=== PATIENT | female | born 1985 | race Caucasian/White ===

== ENCOUNTER 2019-05-21 09:54 | Inpatient (IN) | payer OTHER ==
[2019-05-21] MEDS ORDERED: KETOROLAC 30 MG/ML 1 ML VIAL IVP STA (10:50)
[2019-05-21] MEDS ORDERED: diphenhydrAMINE 50 MG/ML 1 ML VIAL IVP STA (10:50)
[2019-05-21 10:54] LABS: Basophils % (A) 0 %; Eosinophils # (A) 0.1 k/uL (0-0.7); Eosinophils % (A) 1 %; HCT 42.5 % (34.0-46.0); HGB 14.1 gm/dL (11.4-16.0); Lymphocytes # (A) 0.9 k/uL (1.0-4.8); Lymphocytes % (A) 8 %; MCH 29.6 pg (25.0-35.0); MCHC 33.1 g/dL (31.0-37.0); MCV 89.4 fL (80.0-100.0); Mean Platelet Volume 8.1; Monocytes # (A) 0.3 k/uL (0-1.0); Monocytes % (A) 3 %; Neutrophils # (A) 9.6 k/uL (1.3-7.7); Neutrophils % (A) 88 %; Platelet Count 180 k/uL (150-450); RBC 4.76 m/uL (3.80-5.40); RDW 12.8 % (11.5-15.5); WBC 10.9 k/uL (3.8-10.6)
--- NOTE | 2019-05-21 10:55 | CT ---
EXAMINATION TYPE: CT orbits w con DATE OF EXAM: 05/21/2019 COMPARISON: None. HISTORY: Bilateral periorbital swelling, erythema, pain CT DLP: 296 mGycm Automated exposure control for dose reduction was used. CONTRAST: Performed with IV Contrast, patient injected with 100 mL of Isovue 300. FINDINGS: Orbital floors and rebolledo are intact bilaterally. Globes are intact bilaterally. Intraconal fat is pre served. There is perhaps slight asymmetric right-sided proptosis. Rectus muscles are symmetric and th ought within normal limits. Suprasellar cistern is maintained. Pituitary gland is normal in size for patient's age and sex. Optic chiasm is not effaced. Slight prominence of the lacrimal glands bilatera lly. There is ill-defined fluid and fat stranding preorbital region bilaterally significantly more pr ominent on the right with superior extension where there is more ill-defined irregular thick walled f luid collection measuring 2.0 x 0.6 cm-image 27. Reflect developing abscess. No adjacent bony destruc tion. Bilateral frontal sinuses are hypoplastic or nonformed. Visualized paranasal sinuses are clear. Visualized brain parenchyma is within normal limits. Nasal se ptum slightly deviated to right of midline. IMPRESSION: RIGHT GREATER THAN LEFT PRESEPTAL INFECTIOUS PROCESS OR CELLULITIS WITH DEVELOPING RIGHT SMALL SUBCUT ANEOUS ABSCESS THOUGHT PRESENT. NO POST SEPTAL INVOLVEMENT NOTED BILATERALLY.
[2019-05-21 11:00] LABS: ALT 17 U/L (4-34); AST 22 U/L (14-36); African American GFR (CKD) >90 (>60 ml/min/1.73 sqM); Albumin 4.1 g/dL (3.5-5.0); Alkaline Phosphatase 91 U/L (38-126); Anion Gap 9 mmol/L; Blood Urea Nitrogen 9 mg/dL (7-17); Calcium 8.9 mg/dL (8.4-10.2); Carbon Dioxide 24 mmol/L (22-30); Chloride 103 mmol/L (98-107); Glucose 147 mg/dL (74-99); Non-African American GFR(CKD) >90 (>60 ml/min/1.73 sqM); Sodium 136 mmol/L (137-145); Total Bilirubin 0.5 mg/dL (0.2-1.3); Total Protein 7.1 g/dL (6.3-8.2)
--- NOTE | 2019-05-21 11:10 | ED ---
General Adult HPI - General Source: patient, RN notes reviewed Mode of arrival: ambulatory Limitations: no limitations <Lincoln Puri - Last Filed: 05/21/19 11:31> <Allan Borden - Last Filed: 05/21/19 11:37> - General Chief complaint: Allergic Reaction Stated complaint: Facial swelling Time Seen by Provider: 05/21/19 10:02 - History of Present Illness Initial comments: This a 34-year-old female presents emergency Department chief complaint of facial swelling. Patient states it started approximately last Sunday with what she thought was just a pimple. Patient states she went office states that it seemed to come back should popped it. She states that she's had increasing facial pain, swelling. Primarily right greater than left. Patient does admit that she's been on Bactrim taking double the dose since Sunday. Patient states that symptoms continue to worsen. Patient states her right eye swollen almost shut. States her right eye feels very irritated. Patient denies any no fevers or chills no neck pain or neck stiffness. (Lincoln Puri) - Related Data Home Medications Medication Instructions Recorded Confirmed Buprenorphine HCl/Naloxone HCl 1 film SUBLINGUAL TID PRN 05/21/19 05/21/19 [Suboxone 8 mg-2 mg Sl Film] Ibuprofen [Motrin] 800 mg PO Q8H PRN 05/21/19 05/21/19 Sulfamethoxazole/Trimethoprim 1 tab PO BID 05/21/19 05/21/19 [Bactrim DS 800-160 mg] busPIRone HCl [Buspar] 10 mg PO BID 05/21/19 05/21/19 traZODone HCL [Desyrel] 50 mg PO HS 05/21/19 05/21/19 Allergies Allergy/AdvReac Type Severity Reaction Status Date / Time No Known Allergies Allergy Verified 05/21/19 11:13 Review of Systems ROS Other: All systems not noted in ROS Statement are negative. <Lincoln Puri - Last Filed: 05/21/19 11:31> ROS Other: All systems not noted in ROS Statement are negative. <Allan Borden - Last Filed: 05/21/19 11:37> ROS Statement: Those systems with pertinent positive or pertinent negative responses have been documented in the HPI. Past Medical History Past Medical History: No Reported History History of Any Multi-Drug Resistant Organisms: None Reported Past Surgical History: Tubal Ligation Past Psychological History: No Psychological Hx Reported Smoking Status: Current every day smoker Past Alcohol Use History: Occasional Past Drug Use History: Marijuana <Lincoln Puri - Last Filed: 05/21/19 11:31> General Exam Limitations: no limitations General appearance: alert, in no apparent distress Head exam: Present: atraumatic, normocephalic, normal inspection Eye exam: Present: PERRL, EOMI, conjunctival injection (Mild injection on the right), periorbital swelling (Bilateral right greater than left), periorbital tenderness. Absent: normal appearance, scleral icterus Pupils: Present: normal accommodation ENT exam: Present: normal exam, normal oropharynx, mucous membranes moist Neck exam: Present: normal inspection, full ROM. Absent: tenderness, meningismus, lymphadenopathy Respiratory exam: Present: normal lung sounds bilaterally. Absent: respiratory distress, wheezes, rales, rhonchi, stridor Cardiovascular Exam: Present: regular rate, normal rhythm, normal heart sounds. Absent: systolic murmur, diastolic murmur, rubs, gallop, clicks <Lincoln Puri - Last Filed: 05/21/19 11:31> Course <Allan Borden - Last Filed: 05/21/19 11:37> Vital Signs 05/21/19 09:57 Temperature 98.3 F Pulse Rate 119 H Respiratory 21 Rate Blood Pressure 149/88 O2 Sat by Pulse 97 Oximetry - Reevaluation(s) Reevaluation #1: 05/21/19 11:36 Patient reevaluated by myself, Dr. Borden. Patient resting in bed. Patient does have bilateral. No edema and erythema with some mild swelling of the right forehead. Swelling of the right forehead appears as an abscess that is trying to form however has not yet formed to drain. Computed tomography scan reviewed. Case was discussed with Dr. Pandey, who will admit For hospital call. Patient updated. (Allan Borden) Medical Decision Making - Lab Data Result diagrams: 05/21/19 10:28 05/21/19 10:28 <Lincoln Puri - Last Filed: 05/21/19 11:31> - Lab Data Result diagrams: 05/21/19 10:28 05/21/19 10:28 <Allan Borden - Last Filed: 05/21/19 11:37> - Medical Decision Making Patient CT reveals bilateral preseptal cellulitis with early abscess formation patient will be admitted for IV antibiotics and further evaluation. (Lincoln Puri) - Lab Data Lab Results 05/21/19 05/21/19 05/21/19 Range/Units 10:28 10:28 10:28 WBC 10.9 H (3.8-10.6) k/uL RBC 4.76 (3.80-5.40) m/uL Hgb 14.1 (11.4-16.0) gm/dL Hct 42.5 (34.0-46.0) % MCV 89.4 (80.0-100.0) fL MCH 29.6 (25.0-35.0) pg MCHC 33.1 (31.0-37.0) g/dL RDW 12.8 (11.5-15.5) % Plt Count 180 (150-450) k/uL Neutrophils % 88 % Lymphocytes % 8 % Monocytes % 3 % Eosinophils % 1 % Basophils % 0 % Neutrophils # 9.6 H (1.3-7.7) k/uL Lymphocytes # 0.9 L (1.0-4.8) k/uL Monocytes # 0.3 (0-1.0) k/uL Eosinophils # 0.1 (0-0.7) k/uL Basophils # 0.0 (0-0.2) k/uL Sodium 136 L (137-145) mmol/L Potassium 4.0 (3.5-5.1) mmol/L Chloride 103 (98-107) mmol/L Carbon Dioxide 24 (22-30) mmol/L Anion Gap 9 mmol/L BUN 9 (7-17) mg/dL Creatinine 0.72 (0.52-1.04) mg/dL Est GFR (CKD-EPI)AfAm >90 (>60 ml/min/1.73 sqM) Est GFR (CKD-EPI)NonAf >90 (>60 ml/min/1.73 sqM) Glucose 147 H (74-99) mg/dL Plasma Lactic Acid Noel 1.5 (0.7-2.0) mmol/L Calcium 8.9 (8.4-10.2) mg/dL Total Bilirubin 0.5 (0.2-1.3) mg/dL AST 22 (14-36) U/L ALT 17 (4-34) U/L Alkaline Phosphatase 91 (38-126) U/L Total Protein 7.1 (6.3-8.2) g/dL Albumin 4.1 (3.5-5.0) g/dL Disposition <Lincoln Puri - Last Filed: 05/21/19 11:31> <Allan Borden - Last Filed: 05/21/19 11:37> Clinical Impression: Cellulitis of periorbital region of both eyes, Facial abscess, Failure of outpatient treatment Disposition: ADMITTED IP TO THIS HOSP Condition: Fair Referrals: Krystyna Meza MD [Primary Care Provider] - 1-2 days
[2019-05-21] MEDS ORDERED: AMPICILLIN-SULBACTAM 3 GM in SODIUM CHLORIDE 0.9% 100 ML IVPB STA (11:29)
[2019-05-21] MEDS ORDERED: VANCOMYCIN IV PER PHARMACY 1 EACH MISC MISCELLANE PRN (11:30)
[2019-05-21] MEDS ORDERED: NALOXONE 0.4 MG/ML 1 ML VIAL IV PRN (11:32)
[2019-05-21] MEDS ORDERED: KETOROLAC 30 MG/ML 1 ML VIAL IVP PRN (11:32)
[2019-05-21] MEDS ORDERED: ACETAMINOPHEN TAB 325 MG TAB PO PRN (11:32)
[2019-05-21] MEDS ORDERED: ONDANSETRON 4 MG/2 ML VIAL IVP PRN (11:32)
[2019-05-21] MEDS ORDERED: VANCOMYCIN 1,500 MG in SODIUM CHLORIDE 0.9% 250 ML IVPB STA (11:34)
--- NOTE | 2019-05-21 12:48 | P.HPIM ---
History of Present Illness This is a pleasant 54 old female with no significant past medical history. Presents because of eye infection, patient has erythema, swelling and tenderness around both thighs more on the right side. Patient states that this started a small dimple above her right eyebrow which gradually was getting worse and spreading towards her both eyes, she says there was some white discharge coming out of her swelling above her right eye. Also patient complains from pain about 7-8 behind her right eye and a lesser extent in her left eye. Her right eye vision is somewhat blurry as per patient She is slightly tachycardic, afebrile and dressed vitals are stable. She has mild leukocytosis of 10.9 K, sodium 136, rest of BMP and liver enzymes were unremarkable. CT of the head/orbits: Preseptal cellulitis, more on the right side with small cutaneous abscesses might be present, no post subtotal involvement Review of Systems CONSTITUTIONAL: No fever, no malaise, no fatigue. HEENT: No recent visual problems or hearing problems. Denied any sore throat. CARDIOVASCULAR: No orthopnea, PND, no palpitations, no syncope. PULMONARY: No shortness of breath, no cough, no hemoptysis. GASTROINTESTINAL: No diarrhea, no nausea, no vomiting, no abdominal pain. Normoactive bowel sounds. NEUROLOGICAL: No headaches, no weakness, no numbness. HEMATOLOGICAL: Denies any bleeding or petechiae. GENITOURINARY: Denies any burning micturition, frequency, or urgency. MUSCULOSKELETAL/RHEUMATOLOGICAL: Denies any joint pain, swelling, or any muscle pain. ENDOCRINE: Denies any polyuria or polydipsia. Past Medical History Past Medical History: No Reported History History of Any Multi-Drug Resistant Organisms: None Reported Past Surgical History: Tubal Ligation Past Psychological History: No Psychological Hx Reported Smoking Status: Current every day smoker Past Alcohol Use History: Occasional Past Drug Use History: Marijuana Medications and Allergies Home Medications Medication Instructions Recorded Confirmed Type Buprenorphine HCl/Naloxone HCl 1 film SUBLINGUAL TID PRN 05/21/19 05/21/19 History [Suboxone 8 mg-2 mg Sl Film] Ibuprofen [Motrin] 800 mg PO Q8H PRN 05/21/19 05/21/19 History Sulfamethoxazole/Trimethoprim 1 tab PO BID 05/21/19 05/21/19 History [Bactrim DS 800-160 mg] busPIRone HCl [Buspar] 10 mg PO BID 05/21/19 05/21/19 History traZODone HCL [Desyrel] 50 mg PO HS 05/21/19 05/21/19 History Allergies Allergy/AdvReac Type Severity Reaction Status Date / Time No Known Allergies Allergy Verified 05/21/19 11:13 Physical Exam Vitals: Vital Signs Temp Pulse Resp BP Pulse Ox 05/21/19 09:57 98.3 F 119 H 21 149/88 97 Intake and Output 05/20/19 05/21/19 05/21/19 22:59 06:59 14:59 Other: Weight 74.525 kg GENERAL: The patient is alert and oriented x3, not in any acute distress. Well developed, well nourished. HEENT: Pupils are round and equally reacting to light. EOMI. No scleral icterus. No conjunctival pallor. Normocephalic, atraumatic. No pharyngeal erythema. No thyromegaly. -eye and face exam:Patient has redness, warmth, tenderness and swelling around both eyes and eyelids, more on the right side to the degree she cannot open her eyes spontaneously on the right side compared to the left side she can open her eye longterm. Her vision is blurry on the right side. Also she has fluctuance and fullness above her right eyebrow about 2 inches in diameter and 1 inch in width CARDIOVASCULAR: S1 and S2 present. No murmurs, rubs, or gallops. PULMONARY: Chest is clear to auscultation, no wheezing or crackles. ABDOMEN: Soft, nontender, nondistended, normoactive bowel sounds. No palpable organomegaly. MUSCULOSKELETAL: No joint swelling or deformity. EXTREMITIES: No cyanosis, clubbing, or pedal edema. NEUROLOGICAL: Gross neurological examination did not reveal any focal deficits. SKIN: No rashes. No petechiae Results CBC & Chem 7: 05/21/19 10:28 05/21/19 10:28 Labs: Abnormal Lab Results - Last 24 Hours (Table) 05/21/19 05/21/19 Range/Units 10:28 10:28 WBC 10.9 H (3.8-10.6) k/uL Neutrophils # 9.6 H (1.3-7.7) k/uL Lymphocytes # 0.9 L (1.0-4.8) k/uL Sodium 136 L (137-145) mmol/L Glucose 147 H (74-99) mg/dL Assessment and Plan Assessment: Bilateral preseptal cellulitis Possible soft tissue abscess above her right eyebrow Plan: This is a pleasant 54 years old female who presents with preseptal cellulitis. We'll consult infectious disease and further recommendation regarding antibiotic.Also try to consult ENT for possible abscess evacuation and ophthalmology because she has blurred vision . Pain management Labs and medication were reviewed.. Continue same treatment. Continue with symptomatic treatment. Resume home medication. Monitor lytes and vitals. DVT and GI prophylaxis. Further recommendations of the clinical course of the patient DVT prophylaxis: Subcutaneous heparin GI Prophylaxis: Pepcid Prognosis is guarded
[2019-05-21] MEDS: MORPHINE SULFATE 4 MG/ML SYRINGE IV PRN ×2 (14:48→19:48)
[2019-05-21] MEDS: HYDROcodone/APAP 5-325MG 1 EACH TAB PO PRN ×2 (17:24→21:57)
[2019-05-21] MEDS: VANCOMYCIN 1,500 MG in SODIUM CHLORIDE 0.9% 250 ML IVPB SCH (20:03)
[2019-05-21] MEDS: busPIRone HCl 10 MG TAB PO SCH (21:01)
[2019-05-21] MEDS: traZODone HCL 50 MG TAB PO SCH (21:01)
[2019-05-21] MEDS: SODIUM CHLORIDE 0.9% 1,000 ML IV SCH (21:58)
[2019-05-22] MEDS: MORPHINE SULFATE 4 MG/ML SYRINGE IV PRN ×6 (00:16→22:40)
--- NOTE | 2019-05-22 00:16 | P.CONS ---
History of Present Illness - Reason for Consult Consult date: 05/21/19 preseptal cellulitis Requesting physician: Austin Cervantes Sheet - Chief Complaint pain and redness around eyes x days - History of Present Illness Patient is a 34-year-old female presenting to the ER at [facility] with chief complaints of bilateral periorbital pain swelling and redness that the pain has been going on for the last few days patient did menti on that she did have a small pimple above her right eyebrow that she has drained herself twice however subsequent developing significant periorbital swelling redness initially on the right eye and subsequently on the left side as well patient be complaining of throbbing pain to the forehead and periorbital area with intensity almost 7-8 of 10 and no radiation patient did have some chills but denies high-grade fever with the symptom the patient presented to hospital on arrival to the ER the patient has been afebrile patient white from my elevated to 10.[address] of the head and orbit completed which showed right with a left preseptal soft infection possible cellulitis with devel oping very small subcutaneous abscess no post septal involvement noted bilaterally help patient was started on Unasyn and vancomycin admitted to the hospital infectious was consulted for further recommendation about antibiotic therapy Review of Systems CONSTITUTIONAL: Positive for weakness along with low-grade fever. EYES: No complaint. ENT: As per history of present illness rESPIRATORY: No complaint. CARDIOVASCULAR: No complaint. GENITOURINARY: No complaint. GASTROINTESTINAL: No complaint. MUSCULOSKELETAL: No complaint. INTEGUMENTARY: As per history of present illness. PSYCHOLOGIC: No complaint. ENDOCRINE: No complaint. NEUROLOGIC: No complaint. Past Medical History Past Medical History: Hypertension History of Any Multi-Drug Resistant Organisms: None Reported Past Surgical History: Tubal Ligation Past Anesthesia/Blood Transfusion Reactions: No Reported Reaction Past Psychological History: ADD/ADHD Smoking Status: Current every day smoker Past Alcohol Use History: Occasional Past Drug Use History: Marijuana Additional Drug Use History / Comment(s): Daily marijuana use, 2-3 drinks weekly Medications and Allergies Home Medications Medication Instructions Recorded Confirmed Type Buprenorphine HCl/Naloxone HCl 1 film SUBLINGUAL TID PRN 05/21/19 05/21/19 History [Suboxone 8 mg-2 mg Sl Film] Ibuprofen [Motrin] 800 mg PO Q8H PRN 05/21/19 05/21/19 History Sulfamethoxazole/Trimethoprim 1 tab PO BID 05/21/19 05/21/19 History [Bactrim DS 800-160 mg] busPIRone HCl [Buspar] 10 mg PO BID 05/21/19 05/21/19 History traZODone HCL [Desyrel] 50 mg PO HS 05/21/19 05/21/19 History Allergies Allergy/AdvReac Type Severity Reaction Status Date / Time No Known Allergies Allergy Verified 05/21/19 11:13 Physical Exam Vitals: Vital Signs Temp Pulse Pulse Resp BP BP Pulse Ox 05/21/19 15:30 97.3 F L 93 16 147/92 99 05/21/19 13:53 98.1 F 113 H 16 138/99 98 05/21/19 09:57 98.3 F 119 H 21 149/88 97 Intake and Output 05/21/19 05/21/19 05/22/19 14:59 22:59 06:59 Other: # Voids 1 Weight 74.525 kg GENERAL DESCRIPTION: Middle-aged female lying in bed, no distress. No tachypnea or accessory muscle of respiration use. HEENT: Shows Pallor , no scleral icterus. Oral mucous membrane is dry. Bilateral periorbital erythema patient did have a small abscess above her right eyelid with minimal pressure purulent material came out which has been cultured NECK: Trachea central, no thyromegaly. LUNGS: Unlabored breathing. Clear to auscultation anteriorly. No wheeze or crackle. HEART: S1, S2, regular rate and rhythm. ABDOMEN: Soft, no tenderness , guarding or rigidity EXTREMITIES: No edema of feet. SKIN: No rash, no masses palpable. NEUROLOGICAL: The patient is awake, alert, oriented x3, mood and affect normal. Results CBC & Chem 7: 05/21/19 10:28 05/21/19 10:28 Labs: Abnormal Lab Results - Last 24 Hours (Table) 05/21/19 05/21/19 Range/Units 10:28 10:28 WBC 10.9 H (3.8-10.6) k/uL Neutrophils # 9.6 H (1.3-7.7) k/uL Lymphocytes # 0.9 L (1.0-4.8) k/uL Sodium 136 L (137-145) mmol/L Glucose 147 H (74-99) mg/dL Microbiology - Last 24 Hours (Table) 05/21/19 14:36 Wound Culture - Preliminary Face 05/21/19 14:36 Anaerobic Culture - Preliminary Face Assessment and Plan Assessment: -patient with bilateral periorbital cellulitis source is likely small abscess about the right eyebrow that was drained with pressure culture has been obtained and likely a staphylococcal infection with question of possible community associated MRSA (1) Cellulitis of periorbital region of both eyes Current Visit: Yes Status: Acute Code(s): L03.213 - PERIORBITAL CELLULITIS SNOMED Code(s): 002803626 (2) Facial abscess Current Visit: Yes Status: Acute Code(s): L02.01 - CUTANEOUS ABSCESS OF FACE SNOMED Code(s): 121453770 Plan: 1-blood cultures x2 2-local wound cultures will be followed obtained today 3-vancomycin pharmacy to dose her with a target trough of 15 while watching her kidney function and Vanco trough closely. We will follow on clinical condition and cultures to further adjust medication if needed Thank you for this consultation we will follow the patient along with you Time with Patient: Greater than 30
[2019-05-22] MEDS: AMPICILLIN-SULBACTAM 3 GM in SODIUM CHLORIDE 0.9% 100 ML IVPB SCH ×2 (00:17→07:12)
[2019-05-22] MEDS: VANCOMYCIN 1,500 MG in SODIUM CHLORIDE 0.9% 250 ML IVPB SCH ×3 (05:21→20:14)
[2019-05-22] MEDS: busPIRone HCl 10 MG TAB PO SCH ×2 (07:11→20:13)
[2019-05-22] MEDS: HYDROcodone/APAP 5-325MG 1 EACH TAB PO PRN ×3 (07:12→20:13)
--- NOTE | 2019-05-22 07:32 | CONS ---
CONSULTATION REASON FOR CONSULTATION: Right facial abscess. HISTORY: This is a 34-year-old white female who states that a few days ago she had a "pimple over the right eyebrow that she squeezed twice, but then developed variable swelling and redness and tenderness. She presented to the ER for evaluation. She had CT scan of the head, which showed a preseptal cellulitis and abscess. She was seen by Infectious Disease, started on Unasyn and vancomycin and did have some mild purulence squeezed from the area that was cultured but this is pending. In fact, she has not had difficulties in this area previously; however, did have a cellulitis of the left side of the face last year treated with antibiotics and resolved. She has had no fever or chills at home. No visual changes other than swelling around the right eye and therefore cannot see out of this eye very well. She has no eye pain. PAST MEDICAL HISTORY: Hypertension. PAST SURGICAL HISTORY: Tubal ligation. ALLERGIES: No known drug allergies. SOCIAL HISTORY: Does drink alcohol. Occasionally uses marijuana. Smokes daily. MEDICATIONS: At home, Suboxone, Motrin, Bactrim, BuSpar, Desyrel. REVIEW OF SYSTEMS: CONSTITUTIONAL: Pain above the right eye. She denies fever. EYES: As above. ENT: As per present illness. RESPIRATORY: No complaint. CARDIOVASCULAR: No complaint. : No complaint. GI: No complaints. MUSCULOSKELETAL No complaints. INTEGUMENT: As above in the history of present illness. PSYCHOLOGIC: History of ADD, but no present issues with this. ENDOCRINE: No complaint. NEUROLOGIC: No complaint. PHYSICAL EXAM: This is a well-developed adult white female in no acute distress. Vital signs shows she is afebrile. Stable vital signs overall. Otherwise, with mild hypertension intermittently. HEENT: Head normocephalic. Facial exam shows right supraorbital soft tissue swelling and fluctuance. There is a very small pinpoint crusted area which when unroofed has a little bit of purulence. This is minute. There is more fluctuance deep to this. There is right periorbital swelling and edema, although she can open her eye. There is minimal periorbital particularly upper eyelid edema on the left also. She has piercings at the right lateral brow as well as left cheek. The swelling above the eye on the right is tender. Nose shows no drainage or obstruction. Mouth and throat shows a tongue piercing, but no abnormal masses or lesions. Otherwise, no erythema. Neck is supple without adenopathy or tenderness. CT reviewed also as well as labs. ASSESSMENT: Right forehead/brow abscess, possible MRSA. PLAN: Recommend incision and drainage of this abscess. I reviewed the indications, benefits versus risks of the procedure with the patient with the risks including, but not inclusive of the risks of local anesthesia, bleeding, infection, scarring, cosmetic deformity, recurrence, need for further procedures in the future depending on healing and response to medications. The patient understands risks and agrees to proceed. This was performed today at bedside. She tolerated this well. New culture was obtained. Local wound care instructions reviewed. She will continue on present medications with the guidance from Infectious Disease consultation based on culture. She will follow up as needed as this will heal by secondary intention. If she has any questions or concerns, she will call my office regarding this during the healing. For questions or concerns, please contact me. PROCEDURE NOTE: PREOPERATIVE DIAGNOSIS: Right forehead/brow abscess. POSTOPERATIVE DIAGNOSIS: Right forehead/brow abscess. PROCEDURE: Incision and drainage right brow abscess. ANESTHESIA: Local. ESTIMATED BLOOD LOSS: Minimal. Less than 2 mL. COMPLICATIONS: None. INDICATIONS: See consult note. FINDINGS: Abscess with return of approximately 3 mL of thick purulent drainage which was cultured. PROCEDURE DESCRIPTION: Patient was in her hospital bed in a supine position. Informed consent was obtained. The patient is prepped and draped in usual aseptic fashion; 1% lidocaine with 1:1 epinephrine was infused subcutaneously just above the right eyebrow utilizing 2 mL. This was left for 7 minutes for the vasoconstrictive effect. A 1 cm incision was placed just above the right eyebrow and was carried sharply through skin and subcutaneous tissue to the abscess itself. Abscess cavity was then opened bluntly with hemostat and Culture was obtained with the curette. Once no further purulence was draining, a 2 x 2 sterile dressing was placed. The patient tolerated the procedure well with no complications. Good hemostasis noted. MMODL / IJN: [id number] /
--- NOTE | 2019-05-22 08:00 | P.PN ---
Subjective This is a pleasant 54 old female with no significant past medical history. Presents because of eye infection, patient has erythema, swelling and tenderness around both thighs more on the right side. Patient states that this started a small dimple above her right eyebrow which gradually was getting worse and spreading towards her both eyes, she says there was some white discharge coming out of her swelling above her right eye. Also patient complains from pain about 7-8 behind her right eye and a lesser extent in her left eye. Her right eye vision is somewhat blurry as per patient She is slightly tachycardic, afebrile and dressed vitals are stable. She has mild leukocytosis of 10.9 K, sodium 136, rest of BMP and liver enzymes were un remarkable. CT of the head/orbits: Preseptal cellulitis, more on the right side with small cutaneous abscesses might be present, no post subtotal involvement 05/22/2019 Patient feels better, redness, swelling and tenderness in both eyes and eyelids are improving. Her blurriness in her right side is improved today and still didn't blurry by patient and on exam. Patient has been seen by ENT specialist today and she is a status post I and D of her soft tissue abscess about the right eye. Cultures already been ordered and results are pending. Patient has been evaluated by ID team and she was started on Unasyn and IV vancomycin, she is also normal saline at 50 mL/h. Continue with pain management. Extraction Machine Operator to evaluate the patient Updated the patient and all her questions were answered Review of systems CONSTITUTIONAL: No fever, no malaise, no fatigue. HEENT: No recent visual problems or hearing problems. Denied any sore throat. CARDIOVASCULAR: No orthopnea, PND, no palpitations, no syncope. PULMONARY: No shortness of breath, no cough, no hemoptysis. GASTROINTESTINAL: No diarrhea, no nausea, no vomiting, no abdominal pain. Normoactive bowel sounds. NEUROLOGICAL: No headaches, no weakness, no numbness. HEMATOLOGICAL: Denies any bleeding or petechiae. GENITOURINARY: Denies any burning micturition, frequency, or urgency. MUSCULOSKELETAL/RHEUMATOLOGICAL: Denies any joint pain, swelling, or any muscle pain. ENDOCRINE: Denies any polyuria or polydipsia. Active Medications Generic Name Dose Route Start Last Admin Trade Name Freq PRN Reason Stop Dose Admin Acetaminophen 650 mg 05/21/19 11:32 Tylenol Tab PO Q6HR PRN Mild Pain or Fever > 100.5 Hydrocodone Bitart/Acetaminophen 1 each 05/21/19 11:32 05/22/19 07:12 Winston 5-325 PO 1 each Q4HR PRN Administration Moderate Pain Buspirone HCl 10 mg 05/21/19 21:00 05/22/19 07:11 Buspar PO 10 mg BID JOEY Administration Ampicillin Sodium/Sulbactam 100 mls @ 200 mls/hr 05/22/19 00:00 05/22/19 07:1 2 Sodium 3 gm/ Sodium Chloride IVPB 200 mls/hr Q8HR JOEY Administration Vancomycin HCl 1,500 mg/ 250 mls @ 125 mls/hr 05/21/19 20:00 05/22/19 05:21 Sodium Chloride IVPB 125 mls/hr Q8H JOEY Administration Sodium Chloride 1,000 mls @ 50 mls/hr 05/21/19 21:30 05/21/19 21:58 Saline 0.9% IV 50 mls/hr .Q20H JOEY Administration Miscellaneous Information 0 each 05/22/19 19:00 Vancomycin Trough Due MISCELLANE 05/22/19 19:01 DIRECTED ONE Morphine Sulfate 4 mg 05/21/19 11:32 05/22/19 05:22 Morphine Sulfate (Inj) IV 4 mg Q4HR PRN Administration Severe Pain Naloxone HCl 0.2 mg 05/21/19 11:32 Narcan IV Q2M PRN Opioid Reversal Ondansetron HCl 4 mg 05/21/19 11:32 Zofran IVP Q8HR PRN Nausea And Vomiting Trazodone HCl 50 mg 05/21/19 21:00 05/21/19 21:01 Desyrel PO 50 mg HS JOEY Administration Objective - Vital Signs Vital signs: Vital Signs Temp 98.3 F 05/22/19 05:00 Pulse 93 05/22/19 05:00 Resp 18 05/22/19 05:00 BP 139/99 05/22/19 05:00 Pulse Ox 98 05/22/19 05:00 Intake & Output 05/21/19 05/22/19 05/22/19 18:59 06:59 18:59 Intake Total 925 Balance 925 Weight 74.525 kg Intake: Oral 925 Other: Voiding Method Toilet # Voids 1 2 - Exam GENERAL: The patient is alert and oriented x3, not in any acute distress. Well developed, well nourished. HEENT: Pupils are round and equally reacting to light. EOMI. No scleral icterus. No conjunctival pallor. Normocephalic, atraumatic. No pharyngeal erythema. No thyromegaly. -eye and face exam:Patient has improving redness, warmth, tenderness and sw elling around both eyes and eyelids, more on the right side. Her vision is not blurry on the right side today. She is status post I and D of her right forehead abscess, with decrease the swelling and dressing is in place CARDIOVASCULAR: S1 and S2 present. No murmurs, rubs, or gallops. PULMONARY: Chest is clear to auscultation, no wheezing or crackles. ABDOMEN: Soft, nontender, nondistended, normoactive bowel sounds. No palpable organomegaly. MUSCULOSKELETAL: No joint swelling or deformity. EXTREMITIES: No cyanosis, clubbing, or pedal edema. NEUROLOGICAL: Gross neurological examination did not reveal any focal deficits. SKIN: No rashes. No petechiae - Labs CBC & Chem 7: 05/21/19 10:28 05/21/19 10:28 Labs: Abnormal Lab Results - Last 24 Hours (Table) 05/21/19 05/21/19 Range/Units 10:28 10:28 WBC 10.9 H (3.8-10.6) k/uL Neutrophils # 9.6 H (1.3-7.7) k/uL Lymphocytes # 0.9 L (1.0-4.8) k/uL Sodium 136 L (137-145) mmol/L Glucose 147 H (74-99) mg/dL Microbiology - Last 24 Hours (Table) 05/21/19 14:36 Gram Stain - Preliminary Face Wound Culture - Preliminary 05/21/19 14:36 Anaerobic Culture - Preliminary Face Assessment and Plan Assessment: Bilateral preseptal cellulitis soft tissue abscess above her right eyebrow. States post I and D Plan: This is a pleasant 54 years old female who presents with preseptal cellulitis. We'll consult infectious disease and further recommendation regarding antibiotic.Also try to consult ENT for possible abscess evacuation and ophthalmology because she has blurred vision . Pain management Labs and medication were reviewed.. Continue same treatment. Continue with symptomatic treatment. Resume home medication. Monitor lytes and vitals. DVT and GI prophylaxis. Further recommendations of the clinical course of the patient DVT prophylaxis: Subcutaneous heparin GI Prophylaxis: Pepcid Prognosis is guarded
[2019-05-22 08:16] LABS: Basophils % (A) 0 %; Eosinophils # (A) 0.1 k/uL (0-0.7); Eosinophils % (A) 2 %; HCT 37.9 % (34.0-46.0); HGB 12.3 gm/dL (11.4-16.0); Lymphocytes # (A) 1.1 k/uL (1.0-4.8); Lymphocytes % (A) 14 %; MCH 29.7 pg (25.0-35.0); MCHC 32.6 g/dL (31.0-37.0); MCV 91.2 fL (80.0-100.0); Mean Platelet Volume 8.3; Monocytes # (A) 0.3 k/uL (0-1.0); Monocytes % (A) 4 %; Neutrophils # (A) 6.5 k/uL (1.3-7.7); Neutrophils % (A) 81 %; Platelet Count 149 k/uL (150-450); RBC 4.15 m/uL (3.80-5.40); RDW 12.9 % (11.5-15.5); WBC 8.1 k/uL (3.8-10.6)
[2019-05-22 08:32] LABS: African American GFR (CKD) >90 (>60 ml/min/1.73 sqM); Anion Gap 9 mmol/L; Blood Urea Nitrogen 8 mg/dL (7-17); Calcium 8.2 mg/dL (8.4-10.2); Carbon Dioxide 25 mmol/L (22-30); Chloride 102 mmol/L (98-107); Glucose 155 mg/dL (74-99); Non-African American GFR(CKD) >90 (>60 ml/min/1.73 sqM); Potassium 3.6 mmol/L (3.5-5.1); Sodium 136 mmol/L (137-145)
[2019-05-22] MEDS: SODIUM CHLORIDE 0.9% 1,000 ML IV SCH ×2 (14:39→20:16)
[2019-05-22] MEDS ORDERED: VANCOMYCIN TROUGH DUE 1 EACH MISC MISCELLANE ONE (19:00)
[2019-05-22] MEDS: MOXIFLOXACIN HCL 0.5% DROPS 3 ML BTL RIGHT EYE SCH ×2 (19:01→20:14)
--- NOTE | 2019-05-22 19:51 | CONS ---
CONSULTATION CHIEF COMPLAINT: Redness and swelling of the right upper lid for the last few days. HISTORY OF PRESENT ILLNESS: The patient states that she had a swelling on the forehead and she squeezed it, and she thinks that the pus has gone around her eye. She is complaining of blurry vision in the right eye and severe swelling of the lids. Other medical history reviewed. EYE EXAMINATION: VISION: Right eye after opening the lid is 20/30. There is 2+ edema of the right upper lid and the right lower lid. The conjunctiva shows 1+ redness of both eyes. The pupils were equal and reactive in both eyes. Intra- ocular pressure checked with difficulty was 18 mmHg right eye and 12 in the left eye. Cornea clear. No ulcers. Extraocular motility was full. No diplopia. Retina examined with direct disk was good. Blood vessels were normal. ASSESSMENT: 1. Right preseptal cellulitis. 2. Right upper lid ptosis, mechanical. 3. Conjunctivitis, right eye. I agree this is the case of preseptal cellulitis. CT scan of the orbit reviewed. No retro-ocular or cone disease. I agree with the antibiotic IV treatment to start. Vigamox 1 drop 4 times a day to the right eye. I will reexamine on Sunday in the office. Please arrange the office information so I can examine her on Sunday at 9:00 a.m. in the office in [place]. PAMELAL / NIKKIN: [id number] /
[2019-05-22] MEDS: traZODone HCL 50 MG TAB PO SCH (20:14)
[2019-05-22] MEDS ORDERED: ALPRAZolam 0.5 MG TAB PO STA (23:05)
--- NOTE | 2019-05-23 | PN ---
PROGRESS NOTE DATE OF SERVICE: 05/22/2019 REASON FOR FOLLOWUP: Facial cellulitis with forehead abscess. INTERVAL HISTORY: The patient is currently afebrile. The patient did have a bedside I and D by ENT. The patient currently denies having any chest pain or shortness of breath or cough. No nausea or vomiting. No abdominal pain or diarrhea. PHYSICAL EXAMINATION: On examination, blood pressure is 149/96, pulse of 102, temperature 98.3. She is 98% on room air. General description is a middle-aged female up in the bed in no distress. HEENT EXAMINATION: The periorbital swelling and redness slightly decreased. LUNGS: Unlabored breathing, clear to auscultation anteriorly. HEART: S1 and S2. Regular rate and rhythm. ABDOMEN: Soft. No tenderness. LABORATORY DATA: Wound culture that we obtained yesterday showed presumptive MRSA. White count 8.1, creatinine 0.63. DIAGNOSTIC IMPRESSION AND PLAN: Patient with a forehead abscess with bilateral preseptal cellulitis secondary to MRSA. The patient is currently covered with vancomycin; to continue. If the blood cultures are negative by tomorrow, she will get a mid line with the plan of transitioning her to Daptomycin on discharge for at least two weeks with close outpatient followup. Continue supportive care. MMODL / IJN: [id number] /
[2019-05-23] MEDS: MORPHINE SULFATE 4 MG/ML SYRINGE IV PRN ×2 (03:38→10:02)
[2019-05-23] MEDS: VANCOMYCIN 1,750 MG in SODIUM CHLORIDE 0.9% 500 ML 500 ML IVPB SCH ×2 (03:39→11:35)
[2019-05-23 05:06] VITALS: BP 179/99; PULSE 91; RESP 18; TEMP 98.6
[2019-05-23] MEDS: HYDROcodone/APAP 5-325MG 1 EACH TAB PO PRN (06:19)
[2019-05-23] MEDS: MOXIFLOXACIN HCL 0.5% DROPS 3 ML BTL RIGHT EYE SCH (07:12)
[2019-05-23] MEDS: busPIRone HCl 10 MG TAB PO SCH (07:12)
[2019-05-23 07:20] LABS: Basophils % (A) 0 %; Eosinophils # (A) 0.2 k/uL (0-0.7); Eosinophils % (A) 3 %; HCT 39.1 % (34.0-46.0); HGB 12.8 gm/dL (11.4-16.0); Lymphocytes # (A) 1.5 k/uL (1.0-4.8); Lymphocytes % (A) 23 %; MCH 29.5 pg (25.0-35.0); MCHC 32.7 g/dL (31.0-37.0); MCV 90.2 fL (80.0-100.0); Mean Platelet Volume 7.6; Monocytes # (A) 0.3 k/uL (0-1.0); Monocytes % (A) 4 %; Neutrophils # (A) 4.6 k/uL (1.3-7.7); Neutrophils % (A) 68 %; Platelet Count 172 k/uL (150-450); RBC 4.33 m/uL (3.80-5.40); RDW 12.5 % (11.5-15.5); WBC 6.8 k/uL (3.8-10.6)
[2019-05-23 07:46] LABS: African American GFR (CKD) >90 (>60 ml/min/1.73 sqM); Anion Gap 8 mmol/L; Blood Urea Nitrogen 5 mg/dL (7-17); Calcium 8.3 mg/dL (8.4-10.2); Carbon Dioxide 27 mmol/L (22-30); Chloride 102 mmol/L (98-107); Glucose 105 mg/dL (74-99); Non-African American GFR(CKD) >90 (>60 ml/min/1.73 sqM); Potassium 3.8 mmol/L (3.5-5.1); Sodium 137 mmol/L (137-145)
--- NOTE | 2019-05-23 08:32 | P.PN ---
Subjective This is a pleasant 54 old female with no significant past medical history. Presents because of eye infection, patient has erythema, swelling and tenderness around both thighs more on the right side. Patient states that this started a small dimple above her right eyebrow which gradually was getting worse and spreading towards her both eyes, she says there was some white discharge coming out of her swelling above her right eye. Also patient complains from pain about 7-8 behind her right eye and a lesser extent in her left eye. Her right eye vision is somewhat blurry as per patient She is slightly tachycardic, afebrile and dressed vitals are stable. She has mild leukocytosis of 10.9 K, sodium 136, rest of BMP and liver enzymes were un remarkable. CT of the head/orbits: Preseptal cellulitis, more on the right side with small cutaneous abscesses might be present, no post subtotal involvement 05/22/2019 Patient feels better, redness, swelling and tenderness in both eyes and eyelids are improving. Her blurriness in her right side is improved today and still didn't blurry by patient and on exam. Patient has been seen by ENT specialist today and she is a status post I and D of her soft tissue abscess about the right eye. Cultures already been ordered and results are pending. Patient has been evaluated by ID team and she was started on Unasyn and IV vancomycin, she is also normal saline at 50 mL/h. Continue with pain management. Data Entry to evaluate the patient Updated the patient and all her questions were answered 05/23/2019 Patient preseptal cellulitis is significantly better and can estimates its down to 30% compared to when she came in the emergency room. Patient couldn't slightly open her right eye however by most of the part that she still eyelids swollen and closed, however there is significant improvement and redness swelling and tenderness. She is status post I and D for her right forehead a bscess, dressing is in place and this was significantly reduced. Wound is healing. Vitals are stable, blood pressure on the high side 179/99, where going to add Norvasc. Her CBC is back to normal, rest of labs are unremarkable and creatinine 0.5 today. Her wound culture is showing presumptive MRSA however final culture results and sensitivity are still pending. Patient remains on IV vancomycin However patient was crying today what to be discharged before 1:00 pm, I discussed with the patient that the final results of the culture is pending so we can know which antibiotic she will be discharged on for example IV or oral antibiotic. Infectious disease on the case. Patient looks like understand this however she still wants to leave by 1:00, she is crying because of that. She states that she has a 14 years and she is very worried about him and also she has gone by her car today. I tried to extent risks including but not limited to risk of worsening infection, sepsis, blindness, stroke, septic shock, organ dysfunction and/or and she verbalized understanding and she said them back to me, however she still wants to leave AGAINST MEDICAL ADVICE if she is not been discharged by 1 PM. Based upon my evaluation patient has capacity to make medical decision Objective - Vital Signs Vital signs: Vital Signs Temp 98.6 F 05/23/19 05:05 Pulse 91 05/23/19 05:05 Resp 18 05/23/19 05:05 BP 179/99 05/23/19 05:05 Pulse Ox 95 05/23/19 05:05 Intake & Output 05/22/19 05/23/19 05/23/19 18:59 06:59 18:59 Intake Total 220 700 Balance 220 700 Intake: Oral 220 700 Other: Voiding Method Toilet Toilet Toilet # Voids 3 2 - Exam GENERAL: The patient is alert and oriented x3, not in any acute distress. Well developed, well nourished. HEENT: Pupils are round and equally reacting to light. EOMI. No scleral icterus. No conjunctival pallor. Normocephalic, atraumatic. No pharyngeal erythema. No thyromegaly. -eye and face exam:Patient has more improving redness, warmth, tenderness and swelling around both eyes and eyelids, more on the right side. Her vision is not blurry on the right side today. She is status post I and D of her right forehead abscess, with decrease the swelling and dressing is in place CARDIOVASCULAR: S1 and S2 present. No murmurs, rubs, or gallops. PULMONARY: Chest is clear to auscultation, no wheezing or crackles. ABDOMEN: Soft, nontender, nondistended, normoactive bowel sounds. No palpable organomegaly. MUSCULOSKELETAL: No joint swelling or deformity. EXTREMITIES: No cyanosis, clubbing, or pedal edema. NEUROLOGICAL: Gross neurological examination did not reveal any focal deficits. SKIN: No rashes. No petechiae - Labs CBC & Chem 7: 05/23/19 07:06 05/23/19 07:06 Labs: Abnormal Lab Results - Last 24 Hours (Table) 05/22/19 05/23/19 Range/Units 07:42 07:06 Sodium 136 L (137-145) mmol/L BUN 5 L (7-17) mg/dL Glucose 155 H 105 H (74-99) mg/dL Calcium 8.2 L 8.3 L (8.4-10.2) mg/dL Microbiology - Last 24 Hours (Table) 05/22/19 07:00 Gram Stain - Preliminary Face Wound Culture - Preliminary 05/21/19 10:28 Blood Culture - Preliminary Blood No Growth after 24 hours 05/21/19 14:36 Gram Stain - Preliminary Face Wound Culture - Preliminary Presumptive MRSA Assessment and Plan Assessment: Bilateral preseptal cellulitis soft tissue abscess above her right eyebrow. States post I and D Plan: This is a pleasant 54 years old female who presents with preseptal cellulitis. Continue with IV vancomycin for presumptive MRSA, ID on the case. ENT and ophthalmology evaluation is appreciated. Patient instructed for the need to follow-up with her PCP in one week and ophthalmology on this coming Sunday and she verbalized understanding and acceptance. However patient's request to leave AMA, extensive counseling was provided for the patient, please see above. . Continue same treatment. Continue with symptomatic treatment. Resume home medication. Monitor lytes and vitals. DVT and GI prophylaxis. Further recommendations of the clinical course of the patient DVT prophylaxis: Subcutaneous heparin GI Prophylaxis: Pepcid Prognosis is guarded
[2019-05-23] MEDS ORDERED: amLODIPine 5 MG TAB PO SCH (09:00)
[2019-05-23] MEDS: VANCOMYCIN 1,500 MG in SODIUM CHLORIDE 0.9% 250 ML IVPB SCH (11:34)
--- NOTE | 2019-05-23 12:44 | PN ---
PROGRESS NOTE DATE OF SERVICE: 05/23/2019 REASON FOR FOLLOWUP: Right orbital abscess and bilateral preseptal cellulitis, MRSA. INTERVAL HISTORY: The patient is currently afebrile. The patient has been fighting since this morning to leave AMA, to take care of stuff at home. The right orbital swelling and redness has decreased, no drainage has been noticed. Patient can be very anxious and did not provide any further information. She has been yelling at the nursing staff as well as even at the boyfriend. PHYSICAL EXAMINATION: Blood pressure 159/100 with a pulse of 91, temperature 98.6. She is 95% on room air. General description is a middle-aged female, up in the room in no distress. The bilateral periorbital redness slightly decreased. The small area of abscess about the upper eyelid on the right side, minimal drainage on the dressing. Further exam could not be completed. LABS: Hemoglobin is 12.1, white count of 6.8, creatinine 0.52, vanc trough has been low. Culture with presumptive MRSA with sensitivities still pending, blood culture so far negative. DIAGNOSTIC IMPRESSION AND PLAN: Patient with right frontal area abscess, status post drainage with bilateral preseptal cellulitis, MRSA. Blood cultures negative. Since she did have MRSA negative, in view of extensive infection, she will benefit with IV daptomycin which is currently possibly being arranged, waiting insurance authorization. However, the patient is threatening to leave AMA or antibiotics could not be recommended as culture still pending. I do not have sensitivity to the bilevel, discussed this with the patient. MMODL / IJN: [id number] /
--- NOTE | 2019-05-27 14:03 | CDI ---
Documentation Clarification Form Date: 05/27/19 From: Stephani Alberto CCS Phone: If you have a question about this query, please contact Daniela Yañez, Pickle Maker at [phone] between 8am and 5pm. Admit Date: 05/21/19 Discharge Date: 05/23/19 Patient Name: Fátima Shin Visit Number: [id number] ATTENTION: The Clinical Documentation Specialists (CDI) and [facility] Coding Staff appreciate your assistance in clarifying documentation. Please respond to the clarification below the line at the bottom and electronically sign. The CDI & [facility] Coding staff will review the response and follow-up if needed. Please note: Queries are made part of the Legal Health Record. If you have any questions, please contact the author of this message via ITS. Dear Dr. Willard, Documentation states: Patient has mild leukocytosis of 10.9 and sodium 136 History/Risk Factors: Periorbital cellulitis, HTN, Cutaneous abscess, Nicotine dependence Treatment: Sodium Chloride 1000 ml IV 50 mls/hr Clinical significance of diagnostic testing and treatment CANNOT be assumed or coded without physician documentation of significance if any. Please clarify what abnormal laboratory signifies: Hyponatremia Abnormal Lab Value Unable to determine Other, please specify very mild hyponatremia MTDD
== END 2019-05-23 12:09 | disposition left against medical advice (07) | DRG 580 ==
LOC: EC 09:54 → 6NMEDSUR 11:27
PROVIDERS: ADMIT Internal Medicine; ATTEND Internal Medicine
PROC: 0J910ZZ Drainage of Face Subcutaneous Tissue and Fascia, Open Approach (ICD-10-PCS; principal; 2019-05-22)
PROC: 05HC33Z Insertion of Infusion Device into Left Basilic Vein, Percutaneous Approach (ICD-10-PCS; 2019-05-23 10:35)
DX: L02.01 Cutaneous abscess of face (principal); L03.213 Periorbital cellulitis; E87.1 Hypo-osmolality and hyponatremia; F17.200 Nicotine dependence, unspecified, uncomplicated; I10 Essential (primary) hypertension; F90.9 Attention-deficit hyperactivity disorder, unspecified type; H02.401 Unspecified ptosis of right eyelid; H10.9 Unspecified conjunctivitis; B95.62 Methicillin resistant Staphylococcus aureus infection as the cause of diseases classified elsewhere; Z71.6 Tobacco abuse counseling; Z79.899 Other long term (current) drug therapy; Z98.51 Tubal ligation status
CPT/HCPCS: 36410; 36415; 70481; 76937; 80048; 80053; 80202; 83605; 84703; 85025; 87040; 87070; 87075; 87077; 87186; 87205; 96365; 96366; 96368; 96375; 99285

== ENCOUNTER 2022-02-22 08:39 | Emergency (ER) | payer OTHER ==
[2022-02-22 08:57] VITALS: BP 173/101; PULSE 108; RESP 18; TEMP 98.4
[2022-02-22] MEDS ORDERED: ACET/COD 300 MG/30 MG STARTER PACK 6 TAB BTL PO STA (09:25)
--- NOTE | 2022-02-22 09:26 | ED ---
Skin/Abscess/FB HPI - General Chief complaint: Skin/Abscess/Foreign Body Stated complaint: facial edema Time Seen by Provider: 02/22/22 08:58 Source: patient, RN notes reviewed Mode of arrival: ambulatory Limitations: no limitations - History of Present Illness Initial comments: This a 36-year-old female presents emergency Department chief complaint of a bscess right nostril. Patient states it started a few days ago after blowing her nose several times. Patient states that there is some redness, increasing swelling and discomfort. Denies any headache no dizziness no blurred vision no neck pain or neck stiffness no fevers chills no other complaints. - Related Data Home Medications Medication Instructions Recorded Confirmed Buprenorphine HCl/Naloxone HCl 1 film SUBLINGUAL TID PRN 05/21/19 05/21/19 [Suboxone 8 mg-2 mg Sl Film] Ibuprofen [Motrin] 800 mg PO Q8H PRN 05/21/19 05/21/19 Sulfamethoxazole/Trimethoprim 1 tab PO BID 05/21/19 05/21/19 [Bactrim DS 800-160 mg] busPIRone HCl [Buspar] 10 mg PO BID 05/21/19 05/21/19 traZODone HCL [Desyrel] 50 mg PO HS 05/21/19 05/21/19 Previous Rx's Medication Instructions Recorded Cephalexin [Keflex] 500 mg PO Q6HR #40 cap 02/22/22 Sulfamethox-Tmp 800-160Mg [Bactrim 1 each PO Q12HR #20 tab 02/22/22 Ds] Allergies Allergy/AdvReac Type Severity Reaction Status Date / Time No Known Allergies Allergy Verified 02/22/22 08:57 Review of Systems ROS Statement: Those systems with pertinent positive or pertinent negative responses have been documented in the HPI. ROS Other: All systems not noted in ROS Statement are negative. Past Medical History Past Medical History: Hypertension Additional Past Medical History / Comment(s): tachycardia History of Any Multi-Drug Resistant Organisms: MRSA Date of last positivie culture/infection: 05/22/19 MDRO Source:: FACE Past Surgical History: Tubal Ligation Past Anesthesia/Blood Transfusion Reactions: No Reported Reaction Past Psychological History: ADD/ADHD Smoking Status: Current every day smoker, Vaper Past Alcohol Use History: None Reported Past Drug Use History: Marijuana General Exam Limitations: no limitations General appearance: alert, in no apparent distress Head exam: Present: atraumatic, normocephalic, normal inspection Eye exam: Present: normal appearance, PERRL, EOMI. Absent: scleral icterus, conjunctival injection, periorbital swelling ENT exam: Present: normal oropharynx, mucous membranes moist, TM's normal bilaterally, normal external ear exam, other (Right nostril opening there is erythema, swelling noted small pustule.). Absent: normal exam Neck exam: Present: normal inspection, full ROM. Absent: tenderness, meningismus, lymphadenopathy Respiratory exam: Present: normal lung sounds bilaterally. Absent: respiratory distress, wheezes, rales, rhonchi, stridor Course Vital Signs 02/22/22 08:55 Temperature 98.4 F Pulse Rate 108 H Respiratory 18 Rate Blood Pressure 173/101 O2 Sat by Pulse 97 Oximetry Medical Decision Making - Medical Decision Making 36-year-old presented for early facial abscess. Patient will start warm compresses, antibiotics and control return parameters were discussed. Disposition Clinical Impression: Facial abscess Disposition: HOME SELF-CARE Condition: Stable Instructions (If sedation given, give patient instructions): Abscess (ED) Additional Instructions: Please return to the Emergency Department if symptoms worsen or any other concerns. Prescriptions: Sulfamethox-Tmp 800-160Mg [Bactrim Ds] 1 each PO Q12HR #20 tab Cephalexin [Keflex] 500 mg PO Q6HR #40 cap Is patient prescribed a controlled substance at d/c from ED?: No Referrals: Theo Morgan MD [Primary Care Provider] - 1-2 days Time of Disposition: 09:26
== END 2022-02-22 09:38 | disposition home or self-care (01) ==
LOC: EC 08:39
DX: L02.01 Cutaneous abscess of face (principal); I10 Essential (primary) hypertension; F17.290 Nicotine dependence, other tobacco product, uncomplicated; F12.90 Cannabis use, unspecified, uncomplicated; Z79.899 Other long term (current) drug therapy
CPT/HCPCS: 99283

== ENCOUNTER 2022-08-07 13:53 | Emergency (ER) | payer OTHER ==
[2022-08-07] MEDS ORDERED: SODIUM CHLORIDE 0.9% 1,000 ML IV STA (14:31)
[2022-08-07 14:55] LABS: Basophils % (A) 0 %; Eosinophils # (A) 0.1 k/uL (0-0.7); Eosinophils % (A) 1 %; HCT 39.5 % (34.0-46.0); HGB 14.2 gm/dL (11.4-16.0); Lymphocytes # (A) 1.5 k/uL (1.0-4.8); Lymphocytes % (A) 20 %; MCH 30.2 pg (25.0-35.0); MCHC 35.8 g/dL (31.0-37.0); MCV 84.4 fL (80.0-100.0); Mean Platelet Volume 8.3; Monocytes # (A) 0.2 k/uL (0-1.0); Monocytes % (A) 3 %; Neutrophils # (A) 5.7 k/uL (1.3-7.7); Neutrophils % (A) 75 %; Platelet Count 180 k/uL (150-450); RBC 4.68 m/uL (3.80-5.40); RDW 13.2 % (11.5-15.5); WBC 7.6 k/uL (3.8-10.6)
[2022-08-07 15:04] LABS: Partial Thromboplastin Time 22.7 sec (22.0-30.0); Prothrombin Time 10.1 sec (9.0-12.0)
[2022-08-07 15:13] LABS: ALT 22 U/L (4-34); AST 18 U/L (14-36); African American GFR (CKD) >90 (>60 ml/min/1.73 sqM); Albumin 3.6 g/dL (3.5-5.0); Alkaline Phosphatase 53 U/L (38-126); Anion Gap 6 mmol/L; Blood Urea Nitrogen 13 mg/dL (7-17); Calcium 8.7 mg/dL (8.4-10.2); Carbon Dioxide 26 mmol/L (22-30); Chloride 106 mmol/L (98-107); Glucose 137 mg/dL (74-99); Magnesium 2.1 mg/dL (1.6-2.3); Non-African American GFR(CKD) >90 (>60 ml/min/1.73 sqM); Potassium 3.5 mmol/L (3.5-5.1); Sodium 138 mmol/L (137-145); Total Bilirubin 0.2 mg/dL (0.2-1.3); Total Protein 6.3 g/dL (6.3-8.2)
--- NOTE | 2022-08-07 15:15 | ED ---
General Adult HPI - General Chief complaint: Syncope Stated complaint: Fall Time Seen by Provider: 08/07/22 14:18 Source: patient, RN notes reviewed Mode of arrival: EMS - History of Present Illness Initial comments: Patient is a 37-year-old female presented to the emergency room via EMS with probation officer escort from [facility] with reports of syncopal event that caused to collapse and fall. The fall was witnessed by another officer however the officer currently with her is unable to verify any loss of consciousness. Upon arrival to the emergency room patient is alert and oriented times. She reports that she has been having episodes of "seeing spots" all day prior to the event happening. She also reports high levels of stress. Upon arrival she is in a c-collar from EMS. She denies any previous syncopal episodes but does have a history of hypertension and tachycardia; she is [facility] the [facility]. - Related Data Home Medications Medication Instructions Recorded Confirmed Ibuprofen [Motrin Ib] 400 mg PO BID PRN 08/07/22 08/07/22 Loratadine 10 mg PO HS 08/07/22 08/07/22 lisinopriL [Prinivil] 20 mg PO HS 08/07/22 08/07/22 Allergies Allergy/AdvReac Type Severity Reaction Status Date / Time No Known Allergies Allergy Verified 08/07/22 15:07 Review of Systems ROS Statement: Those systems with pertinent positive or pertinent negative responses have been documented in the HPI. ROS Other: All systems not noted in ROS Statement are negative. Past Medical History Past Medical History: Hypertension Additional Past Medical History / Comment(s): tachycardia History of Any Multi-Drug Resistant Organisms: MRSA Date of last positivie culture/infection: 05/22/19 MDRO Source:: FACE Past Surgical History: Tubal Ligation Past Anesthesia/Blood Transfusion Reactions: No Reported Reaction Past Psychological History: ADD/ADHD Smoking Status: Current every day smoker, Vaper Past Alcohol Use History: None Reported Past Drug Use History: Marijuana General Exam - General Exam Comments Initial Comments: GENERAL: No acute distress, well developed, well nourished. HEENT: Normocephalic, atraumatic. Pupils equal, round, reactive to light. Moist mucous membranes. C-collar intact upon initial arrival. After c-collar cleared, full neck range of motion without point tenderness. LUNGS: No respiratory distress. Clear to auscultation, no adventitious sounds, no use of accessory muscles. HEART: Regular rate and rhythm without murmur, rub, or gallop. ABDOMEN: Normal bowel sounds. Soft, non-tender, non-distended. BACK: Normal inspection. EXTREMITIES: No edema. No tenderness. Moves all extremities. NEUROLOGIC: Alert & oriented x 3. CN II-XII grossly intact. PSYCHIATRIC: Normal affect and behavior. DERMATOLOGIC: Skin intact, without rashes or lesions noted. Course Vital Signs 08/07/22 08/07/22 14:00 16:47 Temperature 98.6 F 98.1 F Pulse Rate 67 95 Respiratory 18 16 Rate Blood Pressure 173/99 146/95 O2 Sat by Pulse 96 98 Oximetry Medical Decision Making - Medical Decision Making Was pt. sent in by a medical professional or institution (, PA, BEAD MAKER, urgent care, hospital, or [facility]...) When possible be specific @ -No Did you speak to anyone other than the patient for history (EMS, parent, family, police, friend...)? What history was obtained from this source @ -No Did you review nursing and triage notes (agree or disagree)? Why? @ -I reviewed and agree with nursing and triage notes Were old charts reviewed (outside hosp., previous admission, EMS record, old EKG, old radiological studies, urgent care reports/EKG's, [facility] records)? Report findings @ -Yes, I reviewed records sent from the [facility] with medication reports. Differential Diagnosis (chest pain, altered mental status, abdominal pain women, abdominal pain men, vaginal bleeding, weakness, fever, dyspnea, syncope, headac he, dizziness, GI bleed, back pain, seizure, CVA, palpatations, mental health, musculoskeletal)? @ -Differential Syncope: Valvular disease, hypertrophic cardiomyopathy, pulmonary embolism, tamponade, tachycardia, bradycardia, MA, hypovolemia, hemorrhage, dissection, anemia, intr acranial hemorrhage, seizure, hypoglycemia, carbon monoxide poisoning, this is not meant to be an all-inclusive list. EKG interpreted by me (3pts min.). @ -Sinus rhythm, ventricular rate 73 bpm, NE interval 142 ms, QRS duration 113 ms, QT/QTC 377/404 ms, PRT axes 5, 41, -30 X-rays interpreted by me (1pt min.). @ -Chest x-ray two-view: No acute process soliday she and effusion or pneumothorax. CT interpreted by me (1pt min.). @ -CT brain and cervical spine: No intracranial acute process noted, no hemorrhage, ischemia or mass. Cervical spine without acute fracture or subluxation. U/S interpreted by me (1pt. min.). @ -None done What testing was considered but not performed or refused? (CT, X-rays, U/S, labs)? Why? @ -None What meds were considered but not given or refused? Why? @ -None Did you discuss the management of the patient with other professionals (professionals i.e. , PA, BEAD MAKER, lab, RT, psych nurse, hospice social worker, residence supervisor, teacher, loan service officer, rifle case repairer)? Give summary @ -Yes, procurement officer Was smoking cessation discussed for >3mins.? @ -No Was critical care preformed (if so, how long)? @ -No Were there social determinants of health that impacted care today? How? (Homelessness, low income, unemployed, alcoholism, drug addiction, transportation, low edu. Level, literacy, decrease access to med. care, [facility], rehab)? @ -No Was there de-escalation of care discussed even if they declined (Discuss DNR or withdrawal of care, Hospice)? DNR status @ -No What co-morbidities impacted this encounter? (DM, HTN, Smoking, COPD, CAD, Ca ncer, CVA, ARF, Chemo, Hep., AIDS, mental health diagnosis, sleep apnea, morbid obesity)? @ -None Was patient admitted / discharged? Hospital course, mention meds given and route, prescriptions, significant lab abnormalities, going to OR and other pertinent info. @ -37-year-old female presenting to the emergency room via EMS after a witnessed syncopal like event with fall to the ground. Patient in c-collar upon arrival. Pain levels stable and alert and oriented. Will start syncopal workup with EKG, chest x-ray, CT head and cervical spine in the setting of fall with concern for head trauma, CBC, CMP, magnesium, troponin and coags. Chest x-ray without acute cardiopulmonary process. CT brain and cervical spine negative for fracture or acute intracranial process. C-collar removed. Full neck range of motion without pain or changes in blood pressure. EKG demonstrates sinus rhythm. CBC and coags unremarkable CMP demonstrates elevated glucose 137 otherwise no abnormalities troponin negative magnesium normal. Blood pressure high but no indication for medication administration at this this facility. No indication for further diagnostic imaging or laboratory studies. Questions and concerns answered. Return parameters to the emergency room discussed. Will discharge from her emergency room back into custody of probation officer for return to [facility] in stable condition with continued treatment of hypertension. Undiagnosed new problem with uncertain prognosis? @ -No Drug Therapy requiring intensive monitoring for toxicity (Heparin, Nitro, Insu ailin, Cardizem)? @ -No Were any procedures done? @ -No Diagnosis/symptom? @ -Syncope and collapse Acute, or Chronic, or Acute on Chronic? @ -Acute Uncomplicated (without systemic symptoms) or Complicated (systemic symptoms)? @ -Uncomplicated Side effects of treatment? @ -No Exacerbation, Progression, or Severe Exacerbation? @ -No Poses a threat to life or bodily function? How? (Chest pain, USA, MA, pneumonia, PE, COPD, DKA, ARF, appy, cholecystitis, CVA, Diverticulitis, Homicidal, Suicidal, threat to staff... and all critical care pts) @ -No Case discussed with Dr. Mederos. - Lab Data Result diagrams: 08/07/22 14:38 08/07/22 14:38 Lab Results 08/07/22 08/07/22 08/07/22 Range/Units 14:38 14:38 14:38 WBC 7.6 (3.8-10.6) k/uL RBC 4.68 (3.80-5.40) m/uL Hgb 14.2 (11.4-16.0) gm/dL Hct 39.5 (34.0-46.0) % MCV 84.4 (80.0-100.0) fL MCH 30.2 (25.0-35.0) pg MCHC 35.8 (31.0-37.0) g/dL RDW 13.2 (11.5-15.5) % Plt Count 180 (150-450) k/uL MPV 8.3 Neutrophils % 75 % Lymphocytes % 20 % Monocytes % 3 % Eosinophils % 1 % Basophils % 0 % Neutrophils # 5.7 (1.3-7.7) k/uL Lymphocytes # 1.5 (1.0-4.8) k/uL Monocytes # 0.2 (0-1.0) k/uL Eosinophils # 0.1 (0-0.7) k/uL Basophils # 0.0 (0-0.2) k/uL PT 10.1 (9.0-12.0) sec INR 1.0 (<1.2) APTT 22.7 (22.0-30.0) sec Sodium 138 (137-145) mmol/L Potassium 3.5 (3.5-5.1) mmol/L Chloride 106 (98-107) mmol/L Carbon Dioxide 26 (22-30) mmol/L Anion Gap 6 mmol/L BUN 13 (7-17) mg/dL Creatinine 0.58 (0.52-1.04) mg/dL Est GFR (CKD-EPI)AfAm >90 (>60 ml/min/1.73 sqM) Est GFR (CKD-EPI)NonAf >90 (>60 ml/min/1.73 sqM) Glucose 137 H (74-99) mg/dL Calcium 8.7 (8.4-10.2) mg/dL Magnesium 2.1 (1.6-2.3) mg/dL Total Bilirubin 0.2 (0.2-1.3) mg/dL AST 18 (14-36) U/L ALT 22 (4-34) U/L Alkaline Phosphatase 53 (38-126) U/L Troponin I (0.000-0.034) ng/mL Total Protein 6.3 (6.3-8.2) g/dL Albumin 3.6 (3.5-5.0) g/dL 08/07/22 Range/Units 14:38 WBC (3.8-10.6) k/uL RBC (3.80-5.40) m/uL Hgb (11.4-16.0) gm/dL Hct (34.0-46.0) % MCV (80.0-100.0) fL MCH (25.0-35.0) pg MCHC (31.0-37.0) g/dL RDW (11.5-15.5) % Plt Count (150-450) k/uL MPV Neutrophils % % Lymphocytes % % Monocytes % % Eosinophils % % Basophils % % Neutrophils # (1.3-7.7) k/uL Lymphocytes # (1.0-4.8) k/uL Monocytes # (0-1.0) k/uL Eosinophils # (0-0.7) k/uL Basophils # (0-0.2) k/uL PT (9.0-12.0) sec INR (<1.2) APTT (22.0-30.0) sec Sodium (137-145) mmol/L Potassium (3.5-5.1) mmol/L Chloride (98-107) mmol/L Carbon Dioxide (22-30) mmol/L Anion Gap mmol/L BUN (7-17) mg/dL Creatinine (0.52-1.04) mg/dL Est GFR (CKD-EPI)AfAm (>60 ml/min/1.73 sqM) Est GFR (CKD-EPI)NonAf (>60 ml/min/1.73 sqM) Glucose (74-99) mg/dL Calcium (8.4-10.2) mg/dL Magnesium (1.6-2.3) mg/dL Total Bilirubin (0.2-1.3) mg/dL AST (14-36) U/L ALT (4-34) U/L Alkaline Phosphatase (38-126) U/L Troponin I <0.012 (0.000-0.034) ng/mL Total Protein (6.3-8.2) g/dL Albumin (3.5-5.0) g/dL Disposition Clinical Impression: Syncope and collapse Disposition: HOME SELF-CARE Condition: Stable Instructions (If sedation given, give patient instructions): Syncope (ED) Additional Instructions: Continue to take your blood pressure medication as prescribed. Stay well hydrated. Please follow-up with your primary care provider. Change positions slowly. Please return to the Emergency Department if symptoms worsen or any other concerns. Is patient prescribed a controlled substance at d/c from ED?: No Referrals: None,Stated [Primary Care Provider] - 1-2 days Time of Disposition: 16:42
--- NOTE | 2022-08-07 15:36 | CT ---
EXAMINATION TYPE: CT brain marlen wo con DATE OF EXAM: 08/07/2022 COMPARISON: None HISTORY: 37-year-old female Weakness, syncope CT DLP: 1449.2 mGycm Automated exposure control for dose reduction was used. Technique: Examination of the head was done in axial plane without intravenous contrast. Coronal and sagittal reconstructions performed. CT of the cervical spine was obtained in axial plane without intravenous injection of contrast mater ial. Coronal and sagittal reformatted images were obtained from the axial views for evaluation of f ractures, spinal alignment and canal. FINDINGS: Head: There is no evidence of acute intracranial hemorrhage, acute ischemic changes, mass, mass-effect, or extra-axial fluid collection. There is no effacement of cerebral sulci or basal subarachnoid cister ns. There is no hydrocephalus. There is no midline shift. Griffith-white matter distinction is preserv ed. Mild mucosal thickening and some minimal frothy debris left maxillary sinus. Trace mucosal thickening ethmoid air cells. Slight rightward nasal septal deviation. Mastoid air cells well pneumatized. Orbi ts and globes are intact. Cervical spine: No cranial cervical junction and probably, predental space widening, or prevertebral soft tissue swel ling. There is degenerative change at the C1 dens articulation. Straightening of the normal cervical lordosis but with preserved alignment. Mild to moderate disc/endplate degenerative change as well as uncovertebral joint arthropathy mid to lower cervical spine. Some disc ossify complexes may contribute to mild narrowing of the spinal canal mid and lower cervica l spine. No acute fracture of the cervical spine. Variable mild neural foraminal stenoses throughout, more moderate on the right at C3-C4 and C4-C5. Sagittal and coronal reformatted images confirm above findings. COMBINED IMPRESSION: 1. No acute intracranial abnormality seen. Mild left maxillary sinus disease. 2. No acute fracture or malalignment of the cervical spine. Mild to moderate spondylitic change mid t o lower cervical spine.
--- NOTE | 2022-08-07 16:04 | XR ---
EXAMINATION TYPE: XR chest 2V DATE OF EXAM: 08/07/2022 COMPARISON: NONE TECHNIQUE: PA and lateral views submitted. HISTORY: Pain FINDINGS: The lungs are clear and there is no pneumothorax, pleural effusion, or focal pneumonia. Heart size normal and no overt failure. Osseous structures demonstrate hypertrophic and degenerative changes of the spine. IMPRESSION: 1. No acute process.
[2022-08-07 16:48] VITALS: BP 146/95; PULSE 95; RESP 16; TEMP 98.1
== END 2022-08-07 17:03 | disposition home or self-care (01) ==
LOC: EC 13:53
DX: R55 Syncope and collapse (principal); I10 Essential (primary) hypertension; F17.290 Nicotine dependence, other tobacco product, uncomplicated; F12.90 Cannabis use, unspecified, uncomplicated; Z79.899 Other long term (current) drug therapy; W18.30XA Fall on same level, unspecified, initial encounter
CPT/HCPCS: 36415; 70450; 71046; 72125; 80053; 83735; 84484; 85025; 85610; 85730; 93005; 96360; 96361; 99285